=== PATIENT | female | born 1985 | race Caucasian/White ===

== ENCOUNTER 2018-01-30 19:43 | Emergency (ER) | payer SELFPAY ==
[~2018-01-30] VITALS: Ht 160 cm; Wt 63.6 kg
[~2018-01-30 19:43] MED LIST: AMOXICILLIN500 MG OR; AMOXICILLIN500 MG PO; BIRTH CONTROL PILLS; CEPHALEXIN500 MG OR; CLINDAMYCIN150 MG OR; CLINDAMYCIN300 M1 PO; FERR SULFATE325 MG PO; FERROUS SULF325 M1 PO; FLEXERIL PO; IBUPROFEN600 MG PO; LORTAB 10 OR; LORTAB 1010 MG PO; LORTAB 7.57.5 MG PO; LORTAB5 OR; LORTAB5 PO; MIDOL; NAPROSYN500 MG PO; NO HOME MEDS; ONDANSETRON4 MG PO; ORAL CONTRACEPTIVE; PENICILLN VK500 MG PO; PERCOCET 5/325M1 TAB OR; PERCOCET 5/325M1 TAB PO; PHENERGAN25 MG/TAB PO; PONSTEL250 MG OR; PRE-NATAL PO; PRENATAL1 TA1 PO; PREVACID30 M2 OR; PREVACID30 M2 PO; PROZAC10 MG OR; PROZAC20 M1 OR; TRAMADOL HCL50 MG OR; TRI-SPRINTEC PO; TYLENOL # 31 TA1 PO; TYLENOL 500MG TAB PO; TYLENOL325 MG PO; ULTRAM50 M1 OR; ULTRAM50 M1 PO; ULTRAM50 MG PO; ZOFRAN ODT4 MG OR; ZOFRAN4 MG/TAB PO; ZPAK OR
[2018-01-30 20:23] LABS: URINE BILIRUBIN - DIPSTICK NEGATIVE (NEGATIVE); URINE BLOOD DIPSTICK NEGATIVE (NEGATIVE); URINE COLOR YELLOW; URINE GLUCOSE - DIPSTICK NEGATIVE (NEGATIVE); URINE KETONE NEGATIVE (NEGATIVE); URINE LEUK ESTERASE NEGATIVE (NEGATIVE); URINE NITRITE - DIPSTICK NEGATIVE (Negative); URINE PH 5.5 (4.5-8.0); URINE PROTEIN - DIPSTICK NEGATIVE (NEG-TRACE); URINE SPECIFIC GRAVITY <=1.005; URINE UROBILINOGEN - DIPSTICK 0.2 E.U./dL (0.2)
[2018-01-30 20:24] LABS: BASO% 1 % (0-3); EOS% 10 % (0-8); HEMOGLOBIN 12.5 g/dl (12.0-16.0); IMMATURE GRANULOCYTES 0.4 % (0.0-1.0); LYMPH% 30 % (15-41); MEAN CORPUSCULAR HGB 26.6 pG CALC (26.0-32.0); MEAN CORPUSCULAR HGB CONC 32.1 g/L CALC (32.0-36.0); MONO% 10 % (2-13); NEUT# 4.51 thou/uL (2.00-7.15); NEUT% 49 % (42-76); RED CELL DISTRI WIDTH 15.5 % (11.5-15.5)
[2018-01-30 20:28] LABS: PLATELET COUNT 366 thou/uL (130-400)
[2018-01-30 20:29] LABS: MANUAL DIFFERENTIAL YES
[2018-01-30 20:38] LABS: URINE CLARITY CLEAR
[2018-01-30 20:46] LABS: ALKALINE PHOSPHATASE 363 u/l (38-126); AMYLASE 51 u/l (30-110); ANION GAP 19 (6-22 (CALC)); BILIRUBIN, TOTAL 4.7 mg/dL (0.0-1.4); BUN 15 mg/dL (7-17); BUN/CREATININE RATIO 21 (12-20 (CALC)); CARBON DIOXIDE 23 mmol/l (22-30); CHLORIDE 104 mmol/l (95-108); CREATININE 0.7 mg/dL (0.5-1.0); GFR > 60 ML/MIN (>=60 (CALC)); GFR FOR AFR.AMER. > 60 ML/MIN (>=60 (CALC)); LIPASE 93 u/l (23-300); POTASSIUM 3.9 mmol/l (3.5-5.1); SODIUM 141 mmol/l (137-146); TOTAL PROTEIN 7.6 g/dL (6.3-8.2)
[2018-01-30 20:58] LABS: SGOT/AST 1321 u/l (14-36)
[2018-01-30 21:09] LABS: SGPT/ALT 2573 u/l (9-52)
[2018-01-31 01:17] VITALS: BP 131/80
== END 2018-01-31 01:17 | disposition short-term general hospital (02) | DRG 446 ==
LOC: ED 19:43
PROVIDERS: Emergency Medicine
DX: K80.20 Calculus of gallbladder without cholecystitis without obstruction (principal); F17.210 Nicotine dependence, cigarettes, uncomplicated

== ENCOUNTER 2018-05-09 15:32 | Emergency (ER) | payer SELFPAY ==
[~2018-05-09] VITALS: Ht 160 cm; Wt 70.0 kg
[2018-05-09] MEDS ORDERED: TYLENOL325 M2 PO (16:29)
[2018-05-09] MEDS ORDERED: NAPROSYN500 MG PO (16:37)
[2018-05-09] MEDS ORDERED: GENTAMICIN15 ML/BTL OU (16:37)
[2018-05-09 16:50] VITALS: BP 123/83
== END 2018-05-09 16:54 | disposition home or self-care (01) | DRG 605 ==
LOC: ED 15:32
DX: S50.12XA Contusion of left forearm, initial encounter (principal); H10.9 Unspecified conjunctivitis; B19.10 Unspecified viral hepatitis B without hepatic coma; B19.20 Unspecified viral hepatitis C without hepatic coma; V18.0XXA Pedal cycle driver injured in noncollision transport accident in nontraffic accident, initial encounter; Y93.55 Activity, bike riding; Y92.009 Unspecified place in unspecified non-institutional (private) residence as the place of occurrence of the external cause

== ENCOUNTER 2018-07-24 14:40 | Emergency (ER) | payer SELFPAY ==
[~2018-07-24] VITALS: Ht 160 cm; Wt 60.3 kg
[~2018-07-24 14:40] MED LIST changes: +GENTAMICIN15 ML/BTL OU; +TYLENOL325 M2 PO
[2018-07-24] MEDS ORDERED: KEFLEX500 MG PO ×2 (15:12)
[2018-07-24] MEDS ORDERED: BACTRIM DS1 TAB PO (15:12)
[2018-07-24 15:15] VITALS: BP 128/79
== END 2018-07-24 15:15 | disposition home or self-care (01) | DRG 603 ==
LOC: ED 14:40
DX: L03.114 Cellulitis of left upper limb (principal); S50.862A Insect bite (nonvenomous) of left forearm, initial encounter; F17.210 Nicotine dependence, cigarettes, uncomplicated; W57.XXXA Bitten or stung by nonvenomous insect and other nonvenomous arthropods, initial encounter; Y93.89 Activity, other specified

== ENCOUNTER → 2019-01-07 | Outpatient (REF) | payer OTHER ==
[~2019-01-07] MED LIST changes: +BACTRIM DS1 TAB PO; +KEFLEX500 MG PO
[2019-01-07 12:41] LABS: HEMATOCRIT 33.7 % (37.0-47.0); HEMOGLOBIN 10.9 g/dl (12.0-16.0); IMMATURE GRANULOCYTES 1.8 % (0.0-5.0); MEAN CELL VOLUME 90.6 fL CALC (80.0-100.0); MEAN CORPUSCULAR HGB 29.3 pG CALC (26.0-32.0); MEAN CORPUSCULAR HGB CONC 32.3 g/L CALC (32.0-36.0); NEUT# 5.05 thou/uL (2.00-7.15); RED BLOOD COUNT 3.72 mill/uL (4.20-5.60); RED CELL DISTRI WIDTH 16.6 % (11.5-15.5)
== END | disposition home or self-care (01) | DRG 149 ==
LOC: LABSPEC 12:03
PROVIDERS: ATTEND Nurse Practitioner Family
DX: R42 Dizziness and giddiness (principal)

== ENCOUNTER 2019-10-02 19:39 | Emergency (ER) | payer SELFPAY ==
[~2019-10-02] VITALS: Ht 160 cm; Wt 59.1 kg
[2019-10-02] MEDS ORDERED: METRONIDAZOL500 MG PO (19:48)
[2019-10-02] MEDS ORDERED: MOTRIN800 MG PO (21:28)
[2019-10-02 21:35] VITALS: BP 129/74
== END 2019-10-02 21:35 | disposition home or self-care (01) | DRG 605 ==
LOC: ED 19:39
DX: S20.212A Contusion of left front wall of thorax, initial encounter (principal); W01.0XXA Fall on same level from slipping, tripping and stumbling without subsequent striking against object, initial encounter; Y92.9 Unspecified place or not applicable

== ENCOUNTER 2019-10-24 | Emergency (ER) | payer SELFPAY ==
[~2019-10-24] MED LIST changes: +METRONIDAZOL500 MG PO; +MOTRIN800 MG PO
[2019-10-24] MEDS ORDERED: ZITHROMAX250 MG PO (10:33)
[2019-10-24] MEDS ORDERED: VENTOLIN HFA IN (10:33)
[2019-10-24] MEDS ORDERED: MEDDOSEPAK PO (10:33)
== END 2019-10-24 10:49 | disposition home or self-care (01) | DRG 203 ==
DX: J45.909 Unspecified asthma, uncomplicated (principal); F15.10 Other stimulant abuse, uncomplicated; F17.210 Nicotine dependence, cigarettes, uncomplicated

== ENCOUNTER 2020-09-26 02:14 | Observation (INO) | payer SELFPAY ==
[~2020-09-26] VITALS: Ht 160 cm; Wt 63.6 kg
[~2020-09-26 02:14] MED LIST changes: +MEDDOSEPAK PO; +VENTOLIN HFA IN; +ZITHROMAX250 MG PO
--- NOTE | 2020-09-26 02:24 | NUR ---
AMBULATED TO ROOM WITH STEADY GAIT.
[2020-09-26 02:43] LABS: HEMATOCRIT 36.5 % (37.0-47.0); HEMOGLOBIN 11.8 g/dl (12.0-16.0); IMMATURE GRANULOCYTES 0.6 % (0.0-5.0); MEAN CORPUSCULAR HGB 26.9 pG CALC (26.0-32.0); MEAN CORPUSCULAR HGB CONC 32.3 g/dL CAL (32.0-36.0); NEUT# 4.59 thou/uL (2.00-7.15); RED BLOOD COUNT 4.39 mill/uL (4.20-5.60); RED CELL DISTRI WIDTH 14.2 % (11.5-15.5)
[2020-09-26 02:44] LABS: MEAN CELL VOLUME 83.1 fL CALC (80.0-100.0)
[2020-09-26 02:45] LABS: URINE BILIRUBIN - DIPSTICK NEGATIVE (NEGATIVE); URINE COLOR YELLOW; URINE GLUCOSE - DIPSTICK NEGATIVE (NEGATIVE); URINE KETONE NEGATIVE (NEGATIVE); URINE LEUK ESTERASE TRACE (NEGATIVE); URINE NITRITE - DIPSTICK NEGATIVE (Negative); URINE PROTEIN - DIPSTICK NEGATIVE (NEG-TRACE); URINE SPECIFIC GRAVITY 1.025; URINE UROBILINOGEN - DIPSTICK 0.2 E.U./dL (0.2)
[2020-09-26 02:55] LABS: URINE BLOOD DIPSTICK NEGATIVE (NEGATIVE)
--- NOTE | 2020-09-26 04:30 | NUR ---
NO CHANGE IN EXAM. VSS
[2020-09-26 04:50] LABS: ALKALINE PHOSPHATASE 103 u/l (38-126); AMYLASE 47 u/l (30-110); BILIRUBIN, TOTAL 0.3 mg/dL (0.0-1.4); BUN 16 mg/dL (7-17); BUN/CREATININE RATIO 25 (12-20 (CALC)); CARBON DIOXIDE 25 mmol/l (22-30); CHLORIDE 108 mmol/l (95-108); CREATININE 0.7 mg/dL (0.5-1.0); ETHYL ALCOHOL 0 mg/dl (0-30); GFR > 60 ML/MIN (>=60 (CALC)); GFR FOR AFR.AMER. > 60 ML/MIN (>=60 (CALC)); LIPASE 74 u/l (23-300); SODIUM 140 mmol/l (137-146); TOTAL PROTEIN 7.2 g/dL (6.3-8.2)
[2020-09-26 04:58] LABS: ANION GAP 11 (6-22 (CALC)); POTASSIUM 3.5 mmol/l (3.5-5.1)
[2020-09-26 04:59] LABS: ALBUMIN 3.9 g/dL (3.2-5.0); SGOT/AST 22 u/l (14-36)
[2020-09-26 05:12] LABS: GFR > 60 ML/MIN (>=60 (CALC)); GFR FOR AFR.AMER. > 60 ML/MIN (>=60 (CALC))
--- NOTE | 2020-09-26 05:30 | NUR ---
AWAITING ROOM ASSIGNMENT. RESTING QUIETLY.
--- NOTE | 2020-09-26 06:00 | NUR ---
Admission Note Report Given to: RINA ROBLES Transported by: X Wheelchair Stretcher Transported with: X Nurse Transporter X Patent IV O2 Surveillance Manager Location: ICU X [facility]
[2020-09-26 06:17] LABS: ACT PARTIAL THROMBO TIME 26.4 SECONDS (20.0-32.5); PROTHROMBIN TIME 9.8 SECONDS (9.0-12.5)
--- NOTE | 2020-09-26 06:48 | NUR ---
pt arrived to floor at approx 6am. pt is alert and oriented. able to voice nees. denes pain at this time. pt is npo. lungs ckear. igg positive. no sob noted. pt amb. pt guards abd upon palpitations. bed in lowest positon , call light in reach. will monitor.
[2020-09-26 08:00] VITALS: BP 116/85
--- NOTE | 2020-09-26 08:00 | NUR ---
ASSESSMENT IS COMPLTED: IV SITE IS FREE FROM REDNESS OR EDEMA. HR IS REG,PULSES ARE STRONG X4, ABD IS SOFT WITH ACTIVE BS. BREATH SOUNDS ARE CLEAR BILATERALLY. PT SIGNED CONSENT FOR SURGERY. NERY ISSA. HAD BEEN NPO SINCE MIDNIGHT. CONTINUE TO OSBERVE AND MONITOR.
[2020-09-26 12:00] VITALS: BP 133/85
--- NOTE | 2020-09-26 12:00 | NUR ---
PT IS RELAXING IN BED WITH MO DITRESS NOTED. IV SITE IS FREE FROM REDNESS OR EDEMA.
[2020-09-26 15:22] VITALS: BP 114/73
--- NOTE | 2020-09-26 16:00 | NUR ---
PT IS RELAXING IN EBD WITH NO DISTRESS MOTED. IV SITE IS FREE FROM REDNESS OR EDEMA.
--- NOTE | 2020-09-26 18:29 | NUR ---
PT IS SITTING UP IN THE BED WITH NO DISTRESS NOTED,.
[2020-09-26 19:00] VITALS: BP 124/70
--- NOTE | 2020-09-26 20:25 | NUR ---
PT MEDICATED FOR PAIN 4/10 ON PAIN SCALE REPORTED TO RIGHT FLANK AREA. ACTIVE BOWEL SOUNDS, PT IS EATING ICECREAM AT THIS TIME AND ASKING FOR SOUP/BROTH PROVIDED. DENIES ANY OTHER NEEDS OR DISTRESSESS. ASSESSMENT COMPLETED AT THIS TIME AND POC DISCUSSED. PT VERBALIZED UNDERSTANDING THAT SHE IS TO BE NPO AFTER MIDNIGHT.
--- NOTE | 2020-09-26 23:00 | NUR ---
PT'S FAMILY DELIVERED A BAG FOR HER, DELIVERED THIS TO THE PATIENT AND PROVIDED REFILL OF ICE WATER. NO S/O DISTRESS AT THIS TIME.
[2020-09-27] VITALS (10 sets, daily range): BP systolic 110–151; BP diastolic 73–89
--- NOTE | 2020-09-27 00:02 | NUR ---
IV ANTIBIOTIC THERAPY ADMINISTERED AT THIS TIME. PT JUST FINISHED EATING SOME ICECREAM. I REMINDED HER SHE IS NOW NPO UNTIL MORNING PROCEDURE, SHE VERBALIZED UNDERSTANDING. ALL FOOD AND FLUIDS REMOVED FROM BST TO ASSIST PT IN REMEMBERING THROUGHOUT NIGHT AND SIGN PLACED ON THE DOOR.
--- NOTE | 2020-09-27 05:38 | NUR ---
PT SLEEPING, ANTIBIOTIC THERAPY ADMINISTERED AT THIS TIME. NO S/O DISTRESS NOTED. LIGHTS AND TV ARE ON, CALL LIGHT W/IN REACH.
--- NOTE | 2020-09-27 05:55 | NUR ---
ASSISTED PT TO RESTROOM, URINE CLEAN CATCH COLLECTED AND TAKEN TO LAB. PT LEFT BACK IN BED RETURNING TO SLEEP.
--- NOTE | 2020-09-27 10:16 | NUR ---
PT RETURNS FROM OR AT THIS TIME, SEEN AWAKE, ALERT, ORIENTED X 3. LUNGS CLEAR, RA. ABDOMEN TENDER, NOW WITH SURGICAL INCISIONS X 4, ACTIVE BOWEL SOUNDS. PT DENIES SEVERE PAIN, DOES NOT WANT NARCOTICS AT THIS TIME. VSS.
--- NOTE | 2020-09-27 11:08 | NUR ---
PT TOLERATED FULL LIQUIDS WELL, WILL ADVANCE TO SOFT DIET FOR LUNCH. NO COMPLAINT OF PAIN, PT SEEN SITTING UP IN BED, NO DISTRESS.
--- NOTE | 2020-09-27 12:51 | NUR ---
PT DID WELL WITH SOFT DIET FOR LUNCH. TORADOL PROVIDED FOR PAIN RELIEF. PT HAS BEEN OOB, AMBULATORY TO BR.
--- NOTE | 2020-09-27 18:38 | NUR ---
PT RESTS IN THE BED, HAS TOLERATED SOLIDS BY MOUTH, HAS AMBULATED TO SEVERAL TIMES TODAY. NO REPORT OF ACUTE PAIN.
--- NOTE | 2020-09-27 20:30 | NUR ---
Pt informed nurse that she had pain 5/10, nurse administer pain meds. Also asked for a snack and some juice. Pt feeling much better after surgery.
[2020-09-28] VITALS: BP 130/79
--- NOTE | 2020-09-28 | NUR ---
Pt resting in bed awake watching tv, continues to snack on whatever is available. Pt havng minimal pain and does not want pain meds at this time.
[2020-09-28 04:00] VITALS: BP 132/85
[2020-09-28 08:00] VITALS: BP 124/81
--- NOTE | 2020-09-28 08:00 | NUR ---
REPORT RECEIVED FROM RINA WOODARD. PT SITTING UP IN BED TALKING ON CELL PHONE; ALERT AND ORIENTED X 3. C/O OF MILD PAIN ONLY WITH MOVEMENT. RESPIRATIONS EVEN AND UNLABORED ON ROOM AIR. ABDOMEN SOFT, DISTENDED, AND TENDER. 4 LAP SITES WITH DERMABOND APPEAR HEALTHY AND ARE WELL APPROXIMATED. PT IS TALKATIVE AND LAUGHING; STATES THAT SHE IS READY TO GO HOME. POC REVIEWED. PT ENCOURAGED TO VERBALIZE CONCERNS. STATES UNDERSTANDING. SAFETY MEASURES IN PLACE. CALL LIGHT WITHIN REACH.
--- NOTE | 2020-09-28 08:30 | NUR ---
PERCOCET GIVEN AT THIS TIME FOR MILD PAIN AFTER BREAKFAST. TOLERATED FOOD WELL; CONTINUES TO DENY NAUSEA.
--- NOTE | 2020-09-28 09:09 | NUR ---
DR. HAYES AT BEDSIDE FOR EVAL AND DISCUSS DISCHARGE PLANS.
[2020-09-28] MEDS ORDERED: PERCOCET 5/325M1 TAB PO (09:12)
--- NOTE | 2020-09-28 09:49 | NUR ---
IV site discontinued, cath intact. No edema , no redness, voices no discomfort.
--- NOTE | 2020-09-28 09:58 | NUR ---
Discharge instructions given. Patient verbalizes understanding of same. Discharged in stable condition via Ambulatory to Home with friend. All belongings sent with pt including prescription for percocet signed by Dr. Santamaria.
--- NOTE | 2020-09-29 12:15 | NUR ---
PATIENT'S PATHOLY REPORT CAME BACK. ATTEMPTED TO CONTACT THE PATIENT BUT NO TELEPHONE NUMBER LISTED FOR PATIENT. LOOKED FOR CONTACT AND NO WAY TO LEAVE MESSAGE FOR PATIENT.
== END 2020-09-28 09:58 | disposition home or self-care (01) | DRG 419 ==
LOC: ED 02:14 → MS2 04:04
PROVIDERS: ADMIT Surgery; ATTEND Surgery
PROC: 0FT44ZZ Resection of Gallbladder, Percutaneous Endoscopic Approach (ICD-10-PCS; principal; 2020-09-27)
DX: K80.12 Calculus of gallbladder with acute and chronic cholecystitis without obstruction (principal); F15.10 Other stimulant abuse, uncomplicated; F17.200 Nicotine dependence, unspecified, uncomplicated; B19.20 Unspecified viral hepatitis C without hepatic coma; Z20.828 Contact with and (suspected) exposure to other viral communicable diseases
CPT/HCPCS: G0378; J0131; J1610; J1650; Q9967

== ENCOUNTER 2022-06-07 18:05 | Emergency (ER) | payer MEDICAID ==
[~2022-06-07] VITALS: Ht 160 cm; Wt 84.0 kg
[2022-06-07] MEDS ORDERED: PRENATAL1 TA1 (18:55)
[2022-06-07 19:13] LABS: HEMATOCRIT 32.7 % (37.0-47.0); HEMOGLOBIN 10.8 g/dl (12.0-16.0); MEAN CELL VOLUME 84.1 fL CALC (80.0-100.0); MEAN CORPUSCULAR HGB 27.8 pG CALC (26.0-32.0); PLATELET COUNT 393 thou/uL (130-400); RED BLOOD COUNT 3.89 mill/uL (4.20-5.60)
[2022-06-07 19:28] LABS: ALBUMIN 3.6 g/dL (3.2-5.0); BILIRUBIN, TOTAL 0.2 mg/dL (0.0-1.4); BUN 8 mg/dL (7-17); BUN/CREATININE RATIO 18 (12-20 (CALC)); CHLORIDE 107 mmol/l (95-108); CREATININE 0.4 mg/dL (0.5-1.0); GFR FOR AFR.AMER. > 60 ML/MIN (>=60 (CALC)); GFR OTHER RACES > 60 ML/MIN (>=60 (CALC)); SGOT/AST 17 u/l (14-36); SODIUM 135 mmol/l (137-146); TOTAL PROTEIN 7.2 g/dL (6.3-8.2)
[2022-06-07 19:33] LABS: IMMATURE GRANULOCYTES 6.2 % (0.0-5.0); MANUAL DIFFERENTIAL YES
[2022-06-07 19:38] LABS: BAND 0 % (0-8)
[2022-06-07 19:39] LABS: PLATELET ESTIMATE NORMAL
[2022-06-07 19:41] LABS: ALKALINE PHOSPHATASE 180 u/l (38-126); ANION GAP 14 (6-22 (CALC)); CARBON DIOXIDE 19 mmol/l (22-30); POTASSIUM 4.9 mmol/l (3.5-5.1)
[2022-06-07 20:10] LABS: BETA-HCG, QUANT(RESULT NUMBER) 20843 mIU/mL
[2022-06-07 20:38] LABS: URINE BILIRUBIN - DIPSTICK NEGATIVE (NEGATIVE); URINE BLOOD DIPSTICK NEGATIVE (NEGATIVE); URINE COLOR YELLOW; URINE GLUCOSE - DIPSTICK NEGATIVE (NEGATIVE); URINE KETONE TRACE mg/dL (NEGATIVE); URINE LEUK ESTERASE TRACE (NEGATIVE); URINE NITRITE - DIPSTICK NEGATIVE (Negative); URINE PROTEIN - DIPSTICK 30 mg/dL (NEG-TRACE); URINE UROBILINOGEN - DIPSTICK 0.2 E.U./dL (0.2)
[2022-06-07 20:39] LABS: URINE BACTERIA FEW hpf; URINE RBC 0-2 RBC/hpf (0-5); URINE SQUAMOUS EPITHELIAL CELL MANY EPI/hpf (0-FEW); URINE TRICHOMONAS FEW hpf
[2022-06-07] MEDS ORDERED: ONDANSETRON4 MG PO (21:53)
[2022-06-07 21:57] VITALS: BP 112/84
== END 2022-06-07 22:05 | disposition home or self-care (01) ==
LOC: ED 18:05
PROVIDERS: Nurse Practitioner
DX: O26.893 Other specified pregnancy related conditions, third trimester (principal); R11.0 Nausea; O99.343 Other mental disorders complicating pregnancy, third trimester; F41.9 Anxiety disorder, unspecified; O99.333 Smoking (tobacco) complicating pregnancy, third trimester; F17.200 Nicotine dependence, unspecified, uncomplicated; Z3A.32 32 weeks gestation of pregnancy

== ENCOUNTER 2022-10-29 16:35 | Emergency (ER) | payer OTHER ==
[~2022-10-29] VITALS: Ht 160 cm; Wt 77.0 kg
[~2022-10-29 16:35] MED LIST changes: +PRENATAL1 TA1
[2022-10-29] MEDS ORDERED: AMOXICILLIN500 MG PO (17:58)
[2022-10-29 18:23] VITALS: BP 144/91
== END 2022-10-29 18:23 | disposition home or self-care (01) ==
LOC: ED 16:35
DX: S01.511A Laceration without foreign body of lip, initial encounter (principal); F17.210 Nicotine dependence, cigarettes, uncomplicated; B19.10 Unspecified viral hepatitis B without hepatic coma; B19.20 Unspecified viral hepatitis C without hepatic coma; W01.190A Fall on same level from slipping, tripping and stumbling with subsequent striking against furniture, initial encounter; Y92.009 Unspecified place in unspecified non-institutional (private) residence as the place of occurrence of the external cause